=== PATIENT | female | born 1985 | race Hispanic/Latino ===

== ENCOUNTER 2021-05-03 13:39 | Inpatient (IN) | payer BC, SELFPAY ==
[2021-05-03 15:17] VITALS: BMI 31.1
[2021-05-03] MEDS: Sodium Chloride 0.9% 1,000 ML IV SCH (18:46)
[2021-05-03] MEDS: Multivitamins, Adult 10 ML, Folic Acid 1 MG, Thiamine HCl 100 MG in Dextrose 5 %-0.45 %... IV SCH (18:51)
[2021-05-03 19:45] LABS: Bacteria/HPF None Seen HPF (None Seen); Bilirubin Negative (Negative); Blood, Urine Negative (Negative); Clarity Clear (Clear); Glucose, Urine (Dipstick) Normal (Negative); Ketone, Urine Negative (Negative); Leukocyte Negative Leu/uL (Negative); Nitrite Negative (Negative); Protein, Urine (Dipstick) Negative (Neg-Trace); RBC/HPF 0-3 HPF (0-3); Specific Gravity, Urine 1.017 (1.002-1.036); Squamous Epithelial 0-3 HPF (0-3); Urobilinogen Normal mg/dL (Less than 2); WBC/HPF 0-3 HPF (0-3)
[2021-05-03 19:47] LABS: Urine Culture Reflex No No
[2021-05-03] MEDS ORDERED: Famotidine/PF 20 mg/2ml Vial SLOW IVP SCH (21:00)
[2021-05-03] MEDS: Pantoprazole 40 MG VIAL IVP SCH (21:09)
[2021-05-04] MEDS: Sodium Chloride 0.9% 1,000 ML IV SCH ×2 (04:46→15:32)
[2021-05-04 06:43] LABS: Anion Gap 11 mmol/L (10-20); BUN (Urea Nitrogen) Less than 4 mg/dL (7.0-18.7); Calc. Creatinine Clearance 135 mL/min (70-130); Carbon Dioxide 23 mmol/L (22-29); Chloride 108 mmol/L (98-107); Glucose 90 mg/dL (70-105); Lactic Acid 0.9 mmol/L (0.5-2.2); Potassium 3.8 mmol/L (3.5-5.1); Sodium 138 mmol/L (136-145)
[2021-05-04] MEDS: Pantoprazole 40 MG VIAL IVP SCH ×2 (09:25→22:14)
[2021-05-04 09:29] LABS: Band 5 % (5-11); Eosinophils 4 % (0-10); Hemoglobin 13.3 g/dL (12.0-16.0); Lymphocytes 53 % (21-51); MDiff Complete? YES; Mean Corpuscular HGB CONC 32.6 g/dL (32.0-36.0); Mean Corpuscular Hemoglobin 30.9 pg (27.0-31.0); Mean Platelet Volume 8.3 fL (7.4-10.4); Monocytes 6 % (0-10); Neutrophil 31 % (42-75); Platelet Count 271 thou/uL (130-400); RBC Distribution Width 12.1 % (11.5-14.5); Red Blood Cell (RBC) Count 4.29 mill/uL (4.20-5.40); White Blood Cell (WBC) Count 5.6 thou/uL (4.8-10.8)
[2021-05-04] MEDS: Folic Acid 1 MG TAB PO SCH (09:38)
[2021-05-04] MEDS ORDERED: PROPOFOL 200 MG/20 ML VIAL ONE (14:30)
[2021-05-04] MEDS ORDERED: Ondansetron HCl/PF 4 MG/2 ML Vial IVP PRN (14:46)
[2021-05-04] MEDS: Acyclovir 400 mg Tablet PO SCH ×2 (15:32→22:14)
[2021-05-04] MEDS: Ondansetron PF 4 MG/2 ML Vial IVP PRN (15:41)
[2021-05-04] MEDS: Multivitamins, Adult 10 ML, Folic Acid 1 MG, Thiamine HCl 100 MG in Dextrose 5 %-0.45 %... IV SCH (16:35)
[2021-05-04] MEDS ORDERED: Acetaminophen 325 MG TAB PO PRN (17:14)
[2021-05-04 18:38] LABS: SARS-CoV-2 PCR by NAA Not Detected (NotDetected)
[2021-05-05] MEDS: Pantoprazole 40 MG VIAL IVP SCH ×2 (09:31→20:32)
[2021-05-05] MEDS: Folic Acid 1 MG TAB PO SCH (09:31)
[2021-05-05] MEDS: Acyclovir 400 mg Tablet PO SCH ×3 (09:31→20:32)
[2021-05-06] MEDS ORDERED: Fentanyl 100 MCG/2 ML VIAL ONE ×4 (10:05→13:33)
[2021-05-06] MEDS ORDERED: ceFAZolin 2 GM/DEX 5% 100 ML BAG ONE (10:53)
[2021-05-06] MEDS ORDERED: Glycopyrrolate 0.2 MG/ML 5 ML SYRINGE ONE (11:10)
[2021-05-06] MEDS ORDERED: PROPOFOL 200 MG/20 ML VIAL ONE (11:10)
[2021-05-06] MEDS ORDERED: Ketorolac Tromethamine 30 MG/ML VIAL ONE (11:10)
[2021-05-06] MEDS ORDERED: Lidocaine 1% PF 5 ML VIAL ONE (11:10)
[2021-05-06] MEDS ORDERED: Ondansetron PF 4 MG/2 ML Vial ONE (11:10)
[2021-05-06] MEDS ORDERED: Dexamethasone 20 MG/5 ML VIAL ONE (11:10)
[2021-05-06] MEDS ORDERED: Rocuronium Bromide 10 MG/ML (10ML VIAL) ONE (11:10)
[2021-05-06] MEDS ORDERED: Bupivacaine PF 0.5% 30 ML VIAL ONE (11:24)
[2021-05-06] MEDS ORDERED: EPINEPHrine 1 MG/ML AMP ONE (11:24)
[2021-05-06] MEDS ORDERED: Lidocaine 1% w/Epinephrine 1:100K 20 ML VIAL ONE (11:28)
[2021-05-06] MEDS ORDERED: Bupivacaine 0.25% HCL 30 ML VIAL ONE (11:28)
[2021-05-06] MEDS ORDERED: Promethazine HCl 25 MG/ML VIAL ONE (12:54)
[2021-05-06] MEDS: Acyclovir 400 mg Tablet PO SCH ×3 (14:20→20:48)
[2021-05-06] MEDS: Acetaminophen/Codeine 30-300mg Tablet PO PRN ×2 (14:28→20:45)
[2021-05-06] MEDS: Pantoprazole 40 MG VIAL IVP SCH ×2 (14:29→20:48)
[2021-05-06] MEDS: Folic Acid 1 MG TAB PO SCH (14:35)
[2021-05-06] MEDS: Morphine 2 MG/ML VIAL SLOW IVP PRN (18:21)
[2021-05-06] MEDS: Ondansetron PF 4 MG/2 ML Vial IVP PRN (18:21)
[2021-05-06] MEDS ORDERED: Sodium Chloride 0.9% 500 ML IV SCH (19:15)
[2021-05-06] MEDS: Dextrose 5 %-0.45 % NaCl 1,000 ML IV SCH (19:20)
[2021-05-07] MEDS: Morphine 2 MG/ML VIAL SLOW IVP PRN ×2 (00:04→09:57)
[2021-05-07] MEDS: Dextrose 5 %-0.45 % NaCl 1,000 ML IV SCH ×2 (05:31→16:10)
[2021-05-07] MEDS: Acetaminophen/Codeine 30-300mg Tablet PO PRN (05:52)
[2021-05-07] MEDS ORDERED: Iopamidol 370 76% 100 ML VIAL ONE (09:14)
[2021-05-07] MEDS ORDERED: Iopamidol 370 76% 50 ML VIAL FS ONE (09:14)
[2021-05-07] MEDS: Acyclovir 400 mg Tablet PO SCH ×2 (09:56→16:10)
[2021-05-07] MEDS: Pantoprazole 40 MG VIAL IVP SCH (09:56)
[2021-05-07] MEDS: Folic Acid 1 MG TAB PO SCH (09:56)
[2021-05-07 10:30] LABS: #Basophils 0.1 thou/uL (0.0-0.2); #Eosinphils 0.1 thou/uL (0.0-0.7); #Lymphocytes 2.9 thou/uL (1.20-3.40); #Monocytes 1.1 thou/uL (0.11-0.59); #Neutrophils 8.1 thou/uL (1.40-6.50); %Basophils 0.6 % (0.0-1.0); %Eosinophils 0.5 % (0.0-10.0); %Lymphocytes 23.5 % (21.0-51.0); %Monocytes 8.6 % (0.0-10.0); %Neutrophils 66.8 % (42.0-75.0); Hemoglobin 12.1 g/dL (12.0-16.0); Mean Corpuscular HGB CONC 32.5 g/dL (32.0-36.0); Mean Corpuscular Hemoglobin 30.7 pg (27.0-31.0); Mean Corpuscular Volume 94.4 fL (78.0-98.0); Mean Platelet Volume 8.6 fL (7.4-10.4); Platelet Count 243 thou/uL (130-400); RBC Distribution Width 12.1 % (11.5-14.5); Red Blood Cell (RBC) Count 3.95 mill/uL (4.20-5.40); White Blood Cell (WBC) Count 12.2 thou/uL (4.8-10.8)
[2021-05-07 10:45] LABS: Lactic Acid 1.9 mmol/L (0.5-2.2)
[2021-05-07 10:49] LABS: Anion Gap 11 mmol/L (10-20); BUN (Urea Nitrogen) 4 mg/dL (7.0-18.7); Calc. Creatinine Clearance 123 mL/min (70-130); Calcium 8.1 mg/dL (7.8-10.44); Carbon Dioxide 24 mmol/L (22-29); Chloride 108 mmol/L (98-107); Glucose 97 mg/dL (70-105); Potassium 3.5 mmol/L (3.5-5.1); Sodium 139 mmol/L (136-145)
[2021-05-07 11:51] VITALS: BP 120/79; TEMP 97.8
[2021-05-07] MEDS ORDERED: HYDROcodone/Acetaminophen 10/325 mg Tablet PO PRN (13:34)
[2021-05-09 04:37] LABS: HSV 1 - DNA Positive (Negative); HSV 2 - DNA Negative (Negative)
== END 2021-05-07 18:52 | disposition home or self-care (01) | DRG 418 ==
LOC: SURG A 14:59 → OBSVTOIN 05-05 10:46
PROVIDERS: ADMIT Internal Medicine; ATTEND Internal Medicine
PROC: 0DB78ZX Excision of Stomach, Pylorus, Via Natural or Artificial Opening Endoscopic, Diagnostic (ICD-10-PCS; principal; 2021-05-04)
PROC: 0FT44ZZ Resection of Gallbladder, Percutaneous Endoscopic Approach (ICD-10-PCS; 2021-05-06)
PROC: 3E033XZ Introduction of Vasopressor into Peripheral Vein, Percutaneous Approach (ICD-10-PCS; 2021-05-06)
PROC: HZ2ZZZZ Detoxification Services for Substance Abuse Treatment (ICD-10-PCS; 2021-05-06)
DX: K80.00 Calculus of gallbladder with acute cholecystitis without obstruction (principal); K92.0 Hematemesis; E87.2 Acidosis; Z20.822 Contact with and (suspected) exposure to COVID-19; F10.120 Alcohol abuse with intoxication, uncomplicated; K80.20 Calculus of gallbladder without cholecystitis without obstruction; B00.1 Herpesviral vesicular dermatitis; K82.8 Other specified diseases of gallbladder; G89.29 Other chronic pain; K29.70 Gastritis, unspecified, without bleeding; K25.9 Gastric ulcer, unspecified as acute or chronic, without hemorrhage or perforation; K29.80 Duodenitis without bleeding
CPT/HCPCS: 36415; 74177; 76705; 80048; 81001; 83605; 85025; 87529; 88304; 88305; 88342; 96374; 96375; 96376; C9113; G0378; J0171; J1100; J1885; J2270; J2405; J2550; J2704; J3010; J3411; J7030; J7042; J7050; Q9967; S0020; U0003; U0005